=== PATIENT | male | born 1985 | race African-American/Black ===

== ENCOUNTER 2019-10-06 09:50 | Emergency (ER) | payer SELFPAY ==
[~2019-10-06] VITALS: Ht 170.2 cm; Wt 65.0 kg
[2019-10-06 10:42] VITALS: BP 141/72
== END 2019-10-06 10:46 | disposition home or self-care (01) ==
LOC: ER 10:45
DX: K13.0 Diseases of lips (principal)
CPT/HCPCS: 99283